=== PATIENT | female | born 1980 | race Caucasian/White ===

== ENCOUNTER 2016-07-28 23:47 | Emergency (ER) | payer OTHER | END 2016-07-29 05:35 | disposition home or self-care (01) | LOC: ER1 23:47 | DX: R10.819 Abdominal tenderness, unspecified site (principal); F17.210 Nicotine dependence, cigarettes, uncomplicated; Z90.49 Acquired absence of other specified parts of digestive tract; Z98.51 Tubal ligation status; Z88.1 Allergy status to other antibiotic agents | CPT/HCPCS: 36415; 99284 ==

== ENCOUNTER 2016-08-03 17:20 | Emergency (ER) | payer OTHER ==
[2016-08-03 20:49] LABS: HEMOGLOBIN 12.3 gm/dl (12.3-15.3); RED BLOOD COUNT 3.73 M/UL (4.00-5.10); WHITE BLOOD COUNT 4.7 K/UL (4.5-11.0)
[2016-08-03 23:18] LABS: BUN/CREATININE RATIO 13 (0-10)
== END 2016-08-04 03:05 | disposition home or self-care (01) ==
LOC: ER1 17:20
PROVIDERS: Emergency Medicine
DX: R10.32 Left lower quadrant pain (principal); K21.9 Gastro-esophageal reflux disease without esophagitis; F17.210 Nicotine dependence, cigarettes, uncomplicated; Z90.49 Acquired absence of other specified parts of digestive tract; Z87.19 Personal history of other diseases of the digestive system
CPT/HCPCS: 36415; 80053; 81001; 83690; 84703; 85025; 87210; 96374; 96375; 99284; J1885; J2405; J2550; J7030

== ENCOUNTER → 2020-05-21 | Outpatient (CLI) | payer OTHER ==
[~2020-05-21] MED LIST: BACTRIM 400-801 EACH PO; FLEXERIL 10 MG10 MG PO; IBUPROFEN600 MG PO; KEFLEX CAP 500500 MG PO; KEPPRA500 MG PO; MOBIC15 MG PO; PHENERGAN 25 MG25 M1 PO; PREDNISONE20 MG PO; ZYVOX600 MG PO
== END ==
LOC: EMI 14:26
DX: M25.511 Pain in right shoulder (principal); M67.813 Other specified disorders of tendon, right shoulder
CPT/HCPCS: 73221

== ENCOUNTER 2020-06-02 15:45 | Emergency (ER) | payer OTHER | END 2020-06-02 18:48 | disposition home or self-care (01) | LOC: ER1 15:45 | DX: M25.511 Pain in right shoulder (principal); F17.200 Nicotine dependence, unspecified, uncomplicated; Z86.19 Personal history of other infectious and parasitic diseases | CPT/HCPCS: 73030; 99283 ==

== ENCOUNTER 2020-11-26 08:02 | Observation (INO) | payer OTHER ==
[~2020-11-26] VITALS: Ht 172.7 cm; Wt 64.9 kg
[2020-11-26 09:41] LABS: HEMOGLOBIN 13.8 gm/dl (12.3-15.3); RED BLOOD COUNT 4.17 M/UL (4.00-5.10); WHITE BLOOD COUNT 13.3 K/UL (4.5-11.0)
[2020-11-26 10:09] LABS: BUN/CREATININE RATIO 15 (0-10)
[2020-11-26] MEDS ORDERED: NEURONTIN300 MG PO (12:01)
[2020-11-26] MEDS ORDERED: PHENERGAN 25 MG25 M1 PO (12:02)
[2020-11-26] MEDS ORDERED: IBU800 MG PO (12:03)
[2020-11-26 17:31] LABS: BUN/CREATININE RATIO 14 (0-10)
[2020-11-27 08:28] LABS: WHITE BLOOD COUNT 12.2 K/UL (4.5-11.0)
[2020-11-27 08:31] LABS: HEMOGLOBIN 11.2 gm/dl (12.3-15.3); RED BLOOD COUNT 3.45 M/UL (4.00-5.10)
[2020-11-27 08:48] LABS: BUN/CREATININE RATIO 13 (0-10)
[2020-11-28 03:34] LABS: HEMOGLOBIN 10.8 gm/dl (12.3-15.3); RED BLOOD COUNT 3.41 M/UL (4.00-5.10); WHITE BLOOD COUNT 9.6 K/UL (4.5-11.0)
[2020-11-28 03:58] LABS: BUN/CREATININE RATIO 15 (0-10)
[2020-11-28] MEDS ORDERED: CEFUROXIME250 MG PO (09:07)
== END 2020-11-28 12:24 | disposition home or self-care (01) ==
LOC: ER1 08:02 → MED SURG 4 10:59 → CDU 10:59 → MED SURG 4 15:12
PROVIDERS: Physician Assistant; Physician Assistant Medical; ADMIT Internal Medicine
DX: N30.00 Acute cystitis without hematuria (principal); B96.20 Unspecified Escherichia coli [E. coli] as the cause of diseases classified elsewhere; E87.6 Hypokalemia; R11.2 Nausea with vomiting, unspecified; E87.1 Hypo-osmolality and hyponatremia; G62.9 Polyneuropathy, unspecified; F17.210 Nicotine dependence, cigarettes, uncomplicated; Z20.822 Contact with and (suspected) exposure to COVID-19; Z16.12 Extended spectrum beta lactamase (ESBL) resistance; Z88.1 Allergy status to other antibiotic agents; Z79.899 Other long term (current) drug therapy
CPT/HCPCS: 36415; 80048; 80053; 81001; 83735; 84703; 85025; 85027; 87077; 87086; 87186; 96374; 96375; 96376; 99284; G0378; J0696; J1335; J2405; J2550; J7030; U0002

== ENCOUNTER 2021-02-15 14:14 | Inpatient (IN) | payer OTHER ==
[~2021-02-15] VITALS: Ht 172.7 cm; Wt 59.0 kg
[~2021-02-15 14:14] MED LIST changes: +CEFUROXIME250 MG PO; +IBU800 MG PO; +NEURONTIN300 MG PO
[2021-02-15 15:52] LABS: HEMOGLOBIN 13.5 gm/dl (12.3-15.3); RED BLOOD COUNT 4.2 M/UL (4.00-5.10); WHITE BLOOD COUNT 22.5 K/UL (4.5-11.0)
[2021-02-15 16:14] LABS: BUN/CREATININE RATIO 18 (0-10)
[2021-02-16 02:55] LABS: HEMOGLOBIN 12.4 gm/dl (12.3-15.3); RED BLOOD COUNT 3.85 M/UL (4.00-5.10)
[2021-02-16 02:57] LABS: WHITE BLOOD COUNT 15.7 K/UL (4.5-11.0)
[2021-02-16 03:18] LABS: BUN/CREATININE RATIO 16 (0-10)
[2021-02-17 02:35] LABS: HEMOGLOBIN 10.7 gm/dl (12.3-15.3); RED BLOOD COUNT 3.51 M/UL (4.00-5.10)
[2021-02-17 02:49] LABS: WHITE BLOOD COUNT 6.9 K/UL (4.5-11.0)
[2021-02-17 03:08] LABS: BUN/CREATININE RATIO 16 (0-10)
[2021-02-18 07:32] LABS: HEMOGLOBIN 10.7 gm/dl (12.3-15.3); RED BLOOD COUNT 3.47 M/UL (4.00-5.10)
[2021-02-18 07:35] LABS: WHITE BLOOD COUNT 4.3 K/UL (4.5-11.0)
[2021-02-18 07:54] LABS: BUN/CREATININE RATIO 8 (0-10)
[2021-02-18] MEDS ORDERED: LEVOFLOXACIN500 MG PO (10:38)
[2021-02-18] MEDS ORDERED: IBU800 MG PO (10:38)
[2021-02-18] MEDS ORDERED: FERROUS SULFAT325 M2 PO (12:05)
== END 2021-02-18 11:35 | disposition home or self-care (01) | DRG 872 ==
LOC: ER1 14:14 → CDU 19:05 → PROG CARE 02-16 09:51 → M/S 02-16 13:43
PROVIDERS: Internal Medicine; Physician Assistant Medical; ADMIT Internal Medicine
DX: A41.51 Sepsis due to Escherichia coli [E. coli] (principal); N10 Acute pyelonephritis; E87.1 Hypo-osmolality and hyponatremia; E44.0 Moderate protein-calorie malnutrition; E87.2 Acidosis; Z20.822 Contact with and (suspected) exposure to COVID-19; Z66 Do not resuscitate; E86.0 Dehydration; R65.20 Severe sepsis without septic shock; D50.9 Iron deficiency anemia, unspecified; G43.909 Migraine, unspecified, not intractable, without status migrainosus; G40.909 Epilepsy, unspecified, not intractable, without status epilepticus; F17.210 Nicotine dependence, cigarettes, uncomplicated; E87.6 Hypokalemia; Z87.440 Personal history of urinary (tract) infections; Z68.20 Body mass index [BMI] 20.0-20.9, adult
CPT/HCPCS: 36415; 80048; 80053; 81001; 82728; 83540; 83550; 83605; 84439; 84443; 84703; 85025; 85027; 87040; 87077; 87086; 87186; 96374; 96375; 99285; J0696; J1650; J1885; J2185; J2405; J7030; Q9967; U0002

== ENCOUNTER 2021-03-09 15:43 | Inpatient (IN) | payer OTHER ==
[~2021-03-09] VITALS: Ht 167.6 cm; Wt 63.5 kg
[~2021-03-09 15:43] MED LIST changes: +FERROUS SULFAT325 M2 PO; +LEVOFLOXACIN500 MG PO
[2021-03-09 16:45] LABS: HEMOGLOBIN 13.3 gm/dl (12.3-15.3); RED BLOOD COUNT 4.21 M/UL (4.00-5.10); WHITE BLOOD COUNT 12.1 K/UL (4.5-11.0)
[2021-03-09 16:57] LABS: BUN/CREATININE RATIO 10 (0-10)
[2021-03-10 06:48] LABS: HEMOGLOBIN 11.5 gm/dl (12.3-15.3); WHITE BLOOD COUNT 10.8 K/UL (4.5-11.0)
[2021-03-10 06:50] LABS: RED BLOOD COUNT 3.68 M/UL (4.00-5.10)
[2021-03-10 07:04] LABS: BUN/CREATININE RATIO 8 (0-10)
[2021-03-11 05:59] LABS: HEMOGLOBIN 12.6 gm/dl (12.3-15.3); RED BLOOD COUNT 3.92 M/UL (4.00-5.10); WHITE BLOOD COUNT 6.9 K/UL (4.5-11.0)
[2021-03-11 06:14] LABS: BUN/CREATININE RATIO 9 (0-10)
--- NOTE | 2021-03-11 19:18 | NUR ---
PT HYPOTENSIVE THIS AM, SHES BEEN REQUESTING MORPHINE, DR CARTY ORDERED A 500NS BOLUS AND NO CHANGE IN PRESSURE. HE SPOKE WITH PATIENT AND ORDERED TORADOL FOR PAIN CONTROL.
[2021-03-12] MEDS ORDERED: LEVOFLOXACIN500 MG PO (14:44)
== END 2021-03-12 16:18 | disposition home or self-care (01) | DRG 872 ==
LOC: ER1 15:43 → M/S 20:17 → CDU 20:17 → M/S 21:12
PROVIDERS: Internal Medicine; Physician Assistant Medical; ADMIT Internal Medicine
DX: A41.9 Sepsis, unspecified organism (principal); N10 Acute pyelonephritis; E87.1 Hypo-osmolality and hyponatremia; G40.909 Epilepsy, unspecified, not intractable, without status epilepticus; Z20.822 Contact with and (suspected) exposure to COVID-19; F17.200 Nicotine dependence, unspecified, uncomplicated; I10 Essential (primary) hypertension; Z96.659 Presence of unspecified artificial knee joint; Z90.49 Acquired absence of other specified parts of digestive tract; Z80.6 Family history of leukemia; Z79.899 Other long term (current) drug therapy
CPT/HCPCS: 36415; 71045; 80048; 80053; 81001; 83605; 83690; 83735; 84703; 85025; 85027; 87040; 87086; 96374; 96375; 99285; J0692; J0696; J1650; J1885; J2270; J2405; J7030; Q9967; U0002